=== PATIENT | female | born 1990 | race African-American/Black ===

== ENCOUNTER 2022-10-16 15:41 | Emergency (ER) | payer MEDICAID ==
[~2022-10-16] VITALS: Ht 170.2 cm; Wt 82.0 kg
[2022-10-16 15:50] VITALS: BP 108/63; O2SAT 98
[2022-10-16 18:31] LABS: BASOPHILS % 0.3 % (0.0-2.0); HEMATOCRIT. 33.6 % (36.0-48.0); LYMPHOCYTES % 27.1 % (20.0-50.0); MEAN CORPUSCULAR VOLUME 79.4 fL (81.0-99.0); MEAN PLATELET VOLUME 9.1 fl (7.4-10.4); MONOCYTES % 10.3 % (2.0-8.0); NEUTROPHILS % 62.3 % (40.0-76.0); PLATELET 207 x1000/uL (130-400); RED BLOOD CELL COUNT 4.23 mill/uL (4.2-5.4); RED CELL DISTRIBUTION WIDTH 18.1 % (11.6-14.6)
[2022-10-16 18:49] LABS: CHLORIDE 104 mEq/L (98-107)
[2022-10-16] MEDS ORDERED: ACETAMINOPHEN 325MG TABLET PO ONE (19:45)
[2022-10-16] MEDS ORDERED: TOPUD MT (21:25)
[2022-10-16] MEDS ORDERED: IBUP-1525 MT (21:25)
[2022-10-16 21:37] VITALS: PULSE 94; RESP 16; TEMP 96.6
== END 2022-10-16 21:38 | disposition home or self-care (01) ==
LOC: ER 15:41
DX: M79.605 Pain in left leg (principal); M79.604 Pain in right leg
CPT/HCPCS: 36415; 80048; 85025; 99283